=== PATIENT | male | born 1955 | race Caucasian/White ===

== ENCOUNTER → 2020-02-27 | Outpatient (CLI) | payer OTHER ==
[2020-02-27 09:20] LABS: ALBUMIN 4.3 GM/DL (3.2-4.5); BILIRUBIN,TOTAL 0.3 MG/DL (0.1-1.0); CALCIUM 9.6 MG/DL (8.5-10.1); CREATININE SERUM 2.13 MG/DL (0.60-1.30); POTASSIUM 4.7 MMOL/L (3.6-5.0); TOTAL PROTEIN 6.7 GM/DL (6.4-8.2)
== END ==
LOC: LAB FS 08:12
PROVIDERS: ATTEND Family Medicine
DX: I10 Essential (primary) hypertension (principal); E11.9 Type 2 diabetes mellitus without complications
CPT/HCPCS: 36415; 80053; 80061; 83036

== ENCOUNTER 2022-05-03 19:04 | Emergency (ER) | payer MEDICARE ==
[~2022-05-03] VITALS: Ht 177.8 cm; Wt 135.3 kg
--- NOTE | 2022-05-03 19:16 | ED General ---
General Chief Complaint: Head/Cervical Problems Stated Complaint: HEADACHE, ELEVATED BP History of Present Illness Date Seen by Provider: May 03, 2022 Time Seen by Provider: 19:16 Initial Comments 66-year-old male with PMH of DM2/HLD/HTN, is here with complaints of headache for the past 3 days and running out of his blood pressure medication. Patient has not taken his blood pressure medication for the last 3 months because he ran out, and felt he did not need it any longer so he did not see his PCP for a refill. Denies chest pain, palpitations, fever, shortness of breath, cough, abdominal pain, dizziness, blurry vision, hearing issues. Allergies and Home Medications Allergies Coded Allergies: No Allergy Information Available (Unverified , 07/11/15) UNABLE TO OBTAIN Patient Home Medication List Home Medication List Reviewed: Yes Review of Systems Review of Systems Constitutional: no symptoms reported EENTM: no symptoms reported Respiratory: no symptoms reported Cardiovascular: no symptoms reported Gastrointestinal: no symptoms reported Musculoskeletal: no symptoms reported Skin: no symptoms reported Psychiatric/Neurological: Headache Hematologic/Lymphatic: No Symptoms Reported Immunological/Allergic: no symptoms reported Past Gvdowjb-Ultlsp-Pqeprj Hx Patient Social History Tobacco Use?: Yes Smokeless Tobacco Frequency: Current Everyday User Use of E-Cig and/or Vaping dev: No Substance use?: No Alcohol Use?: No Pt feels they are or have been: No Immunizations Up To Date Influenza Vaccine Up-to-Date: Yes; Up-to-Date Physical Exam Vital Signs Vital Signs - First Documented 05/03/22 19:08 Temp 36.5 Pulse 84 Resp 18 B/P (MAP) 183/96 (125) Pulse Ox 96 O2 Delivery Room Air Capillary Refill : Height, Weight, BMI Height: '" Weight: lbs. oz. kg; BMI Method: General Appearance: No Apparent Distress, WD/WN, Obese HEENT: PERRL/EOMI, Moist Mucous Membranes Neck: Full Range of Motion, Normal Inspection, Non Tender, Supple Respiratory: Chest Non Tender, Lungs Clear, Normal Breath Sounds Cardiovascular: Regular Rate, Rhythm Gastrointestinal: Non Tender, Soft Back: Normal Inspection Extremity: Non Tender, No Calf Tenderness Neurologic/Psychiatric: Alert, Oriented x3, No Motor/Sensory Deficits, Normal Mood/Affect, corrugator II-XII Norm as Tested Skin: Normal Color Lymphatic: No Adenopathy Progress/Results/Core Measures Suspected Sepsis SIRS Temperature: Pulse: Respiratory Rate: Laboratory Tests 05/03/22 19:50: White Blood Count 7.8 Blood Pressure / Mean: Laboratory Tests 05/03/22 19:50: Creatinine 2.26H, INR Comment 0.9, Platelet Count 198, Total Bilirubin 0.2 Results/Orders Lab Results Laboratory Tests Test 05/03/22 19:50 05/03/22 20:13 Range/Units White Blood Count 7.8 4.3-11.0 10^3/uL Red Blood Count 5.25 4.30-5.52 10^6/uL Hemoglobin 15.6 13.3-17.7 g/dL Hematocrit 44 40-54 % Mean Corpuscular Volume 83 80-99 fL Mean Corpuscular Hemoglobin 30 25-34 pg Mean Corpuscular Hemoglobin Concent 36 32-36 g/dL Red Cell Distribution Width 13.3 10.0-14.5 % Platelet Count 198 130-400 10^3/uL Mean Platelet Volume 9.2 9.0-12.2 fL Immature Granulocyte % (Auto) 1 % Neutrophils (%) (Auto) 59 42-75 % Lymphocytes (%) (Auto) 28 12-44 % Monocytes (%) (Auto) 8 0-12 % Eosinophils (%) (Auto) 3 0-10 % Basophils (%) (Auto) 1 0-10 % Neutrophils # (Auto) 4.6 1.8-7.8 10^3/uL Lymphocytes # (Auto) 2.2 1.0-4.0 10^3/uL Monocytes # (Auto) 0.6 0.0-1.0 10^3/uL Eosinophils # (Auto) 0.3 0.0-0.3 10^3/uL Basophils # (Auto) 0.1 0.0-0.1 10^3/uL Immature Granulocyte # (Auto) 0.1 0.0-0.1 10^3/uL Prothrombin Time 12.3 12.2-14.7 SEC INR Comment 0.9 0.8-1.4 Activated Partial Thromboplast Time 26 24-35 SEC Sodium Level 141 135-145 MMOL/L Potassium Level 4.6 3.6-5.0 MMOL/L Chloride Level 106 98-107 MMOL/L Carbon Dioxide Level 22 21-32 MMOL/L Anion Gap 13 5-14 MMOL/L Blood Urea Nitrogen 29 H 7-18 MG/DL Creatinine 2.26 H 0.60-1.30 MG/DL Estimat Glomerular Filtration Rate 31 BUN/Creatinine Ratio 13 Glucose Level 193 H 70-105 MG/DL Calcium Level 8.6 8.5-10.1 MG/DL Corrected Calcium 9.0 8.5-10.1 MG/DL Magnesium Level 1.8 1.6-2.4 MG/DL Total Bilirubin 0.2 0.1-1.0 MG/DL Aspartate Amino Transf (AST/SGOT) 23 5-34 U/L Alanine Aminotransferase (ALT/SGPT) 18 0-55 U/L Alkaline Phosphatase 71 40-136 U/L Troponin I < 0.30 <0.30 NG/ML Total Protein 5.7 L 6.4-8.2 GM/DL Albumin 3.5 3.2-4.5 GM/DL Serum Alcohol < 10 <10 MG/DL Urine Color YELLOW Urine Clarity CLEAR Urine pH 6.0 5-9 Urine Specific [place] 1.025 H 1.016-1.022 Urine Protein 3+ H NEGATIVE Urine Glucose (UA) 1+ H NEGATIVE Urine Ketones NEGATIVE NEGATIVE Urine Nitrite NEGATIVE NEGATIVE Urine Bilirubin NEGATIVE NEGATIVE Urine Urobilinogen 0.2 < = 1.0 MG/DL Urine Leukocyte Esterase NEGATIVE NEGATIVE Urine RBC (Auto) 1+ H NEGATIVE Urine RBC 0-2 /HPF Urine WBC 10-25 H /HPF Urine Squamous Epithelial Cells 0-2 /HPF Urine Crystals NONE /LPF Urine Bacteria FEW H /HPF Urine Casts PRESENT /LPF Urine Hyaline Casts 0-2 H /LPF Urine Mucus NEGATIVE /LPF Urine Culture Indicated YES Urine Opiates Screen NEGATIVE NEGATIVE Urine Oxycodone Screen NEGATIVE NEGATIVE Urine Methadone Screen NEGATIVE NEGATIVE Urine Propoxyphene Screen NEGATIVE NEGATIVE Urine Barbiturates Screen NEGATIVE NEGATIVE Ur Tricyclic Antidepressants Screen NEGATIVE NEGATIVE Urine Phencyclidine Screen NEGATIVE NEGATIVE Urine Amphetamines Screen NEGATIVE NEGATIVE Urine Methamphetamines Screen NEGATIVE NEGATIVE Urine Benzodiazepines Screen NEGATIVE NEGATIVE Urine Cocaine Screen NEGATIVE NEGATIVE Urine Cannabinoids Screen NEGATIVE NEGATIVE My Orders Orders - FARIBA MEDINA MD Alcohol (05/03/22 19:18) Cbc With Automated Diff (05/03/22 19:18) Comprehensive Metabolic Panel (05/03/22 19:18) Drug Screen Stat (Urine) (05/03/22 19:18) Magnesium (05/03/22 19:18) Protime With Inr (05/03/22 19:18) Partial Thromboplastin Time (05/03/22 19:18) Ua Culture If Indicated (05/03/22 19:18) Troponin I Fs (05/03/22 19:18) Ct Head Wo (05/03/22 19:18) Chest 1 View Ap/Pa Only (05/03/22 19:18) Ekg Tracing (05/03/22 19:18) Monitor-Rhythm Ecg Trace Only (05/03/22 19:18) Metoprolol Succinate (Xl) Tab (Toprol Xl (05/03/22 19:32) Lisinopril Tablet (Zestril Tablet) (05/03/22 19:32) Urine Culture (05/03/22 20:13) Hydralazine Injection (Apresoline Inject (05/03/22 21:15) Vital Signs/I&O 05/03/22 05/03/22 05/03/22 05/03/22 19:08 19:15 20:00 21:07 Temp 36.5 Pulse 84 90 90 81 Resp 18 18 16 16 B/P (MAP) 183/96 (125) 175/93 187/86 184/92 Pulse Ox 96 96 95 96 O2 Delivery Room Air Room Air Room Air Room Air Capillary Refill : Progress Note : Progress Note 1. HYPERTENSIVE URGENCY WITH HEADACHE: - CT HEAD: no acute findings - CXR: unremarkable - CBC/ CMP - UA/ UDS: - Metoprolol Succinate XR 50mg & Lisinopril 10mg STAT in ER - Prescription refills given for BP medications Diagnostic Imaging Diagonstic Imaging: Xray, CT Plain Films/CT/US/NM/MRI: chest, head Comments [facility]. [place], [place] NAME: MAMADOU MILLIGAN [facility] REC#: [id number] PT STATUS: REG ER : 1955 PHYSICIAN: FARIBA MEDINA MD ADMIT DATE: 05/03/22/ER FS Draft Date of Exam:05/03/22 CT HEAD WO INDICATION: Headache/elevated BP. TECHNIQUE: Routine non contrast-enhanced axial images were obtained from the skull base to the vertex. Auto Exposure Controls were utilized during the CT exam to meet ALARA standards for radiation dose reduction. COMPARISON: None. FINDINGS: The ventricles and cortical sulci are diffusely prominent, compatible with age-related volume loss. There are confluent areas of abnormal, low attenuation in the periventricular white matter. This is consistent with small vessel ischemic changes; age-indeterminate. There is no prior study available for comparison. There is no midline shift or mass-effect. No acute intra-axial hemorrhage is seen. There are no abnormal areas of increased or decreased density to suggest acute hemorrhage or edema. No extra-axial masses or collections are present. The bony calvarium is intact. The visualized paranasal sinuses are unremarkable. The mastoid air cells are clear. IMPRESSION: 1. No acute intracranial abnormality. No CT evidence of mass, acute infarct or intracranial hemorrhage. 2. Small vessel ischemic changes in the periventricular and subcortical white matter; likely chronic. Dictated on workstation # [id number] Dict: 05/03/221945 Trans: 05/03/221947 PJSami [id number] Interpreted by: RANCHO REDDY MD Electronically signed by: [facility] [place] [place] NAME: MAMADOU MILLIGAN [facility] REC#: [id number] PT STATUS: REG ER : 1955 PHYSICIAN: FARIBA MEDINA MD ADMIT DATE: 05/03/22/ER FS Draft Date of Exam:05/03/22 CHEST 1 VIEW AP/PA ONLY INDICATION: Elevated BP. COMPARISON: None. FINDINGS: Single frontal view of the chest demonstrates normal heart size and pulmonary vascularity. The lungs are well aerated and clear. No large pleural effusion or pneumothorax is seen. The visualized osseous structures show no acute abnormalities. IMPRESSION: No acute cardiopulmonary process. Dictated on workstation # [id number] Dict: 05/03/221944 Trans: 05/03/221946 PJSami [id number] Interpreted by: RANCHO REDDY MD Electronically signed by: Departure Impression Primary Impression: Hypertensive urgency Additional Impression: Head ache Qualified Codes: R51.9 - Headache, unspecified Disposition: HOME, SELF-CARE Condition: Improved Departure-Patient Inst. Referrals: RONA VAZQUEZ MD (PCP/Family) Primary Care Physician Patient Instructions: High Blood Pressure Emergencies, Medicines for High Blood Pressure, Home Headache Remedies, High Blood Pressure in Adults Scripts Lisinopril/Hydrochlorothiazide (Lisinopril-Hctz 10-12.5 mg Tab) 10 Mg-12.5 Mg Tablet 1 EACH PO DAILY for 14 Days, #14 TAB Prov: FARIBA MEDINA MD 05/03/22 Metoprolol Succinate (Metoprolol Succinate) 100 Mg Tab.er.24h 100 MG PO DAILY for 14 Days, #14 TAB Prov: FARIBA MEDINA MD 05/03/22 FARIBA MEDINA MD May 03, 2022 19:16
[2022-05-03] MEDS ORDERED: meTOproloL SUCCINATE 50 MG (TOPROL XL) TAB PO STA (19:32)
[2022-05-03] MEDS ORDERED: lisINopril 10 MG (PRINIVIL) TABLET PO STA (19:32)
--- NOTE | 2022-05-03 19:48 | Diagnostic Imaging Report ---
INDICATION: Elevated BP. COMPARISON: None. FINDINGS: Single frontal view of the chest demonstrates normal heart size and pulmonary vascularity. The lungs are well aerated and clear. No large pleural effusion or pneumothorax is seen. The visualized osseous structures show no acute abnormalities. IMPRESSION: No acute cardiopulmonary process. Dictated by: Dictated on workstation # [id number]
--- NOTE | 2022-05-03 19:49 | Diagnostic Imaging Report ---
INDICATION: Headache/elevated BP. TECHNIQUE: Routine non contrast-enhanced axial images were obtained from the skull base to the vertex. Auto Exposure Controls were utilized during the CT exam to meet ALARA standards for radiation dose reduction. COMPARISON: None. FINDINGS: The ventricles and cortical sulci are diffusely prominent, compatible with age-related volume loss. There are confluent areas of abnormal, low attenuation in the periventricular white matter. This is consistent with small vessel ischemic changes; age-indeterminate. There is no prior study available for comparison. There is no midline shift or mass-effect. No acute intra-axial hemorrhage is seen. There are no abnormal areas of increased or decreased density to suggest acute hemorrhage or edema. No extra-axial masses or collections are present. The bony calvarium is intact. The visualized paranasal sinuses are unremarkable. The mastoid air cells are clear. IMPRESSION: 1. No acute intracranial abnormality. No CT evidence of mass, acute infarct or intracranial hemorrhage. 2. Small vessel ischemic changes in the periventricular and subcortical white matter; likely chronic. Dictated by: Dictated on workstation # [id number]
[2022-05-03 19:53] LABS: BASOPHILS # (AUTO) 0.1 10^3/uL (0.0-0.1); BASOPHILS % (AUTO) 1 % (0-10); EOSINOPHILS # (AUTO) 0.3 10^3/uL (0.0-0.3); EOSINOPHILS % (AUTO) 3 % (0-10); HEMATOCRIT 44 % (40-54); HEMOGLOBIN 15.6 g/dL (13.3-17.7); LYMPHOCYTES # (AUTO) 2.2 10^3/uL (1.0-4.0); LYMPHOCYTES % (AUTO) 28 % (12-44); MEAN CORPUSCULAR HEMOGLOBIN 30 pg (25-34); MEAN CORPUSCULAR HGB CONC 36 g/dL (32-36); MEAN CORPUSCULAR VOLUME 83 fL (80-99); MEAN PLATELET VOLUME 9.2 fL (9.0-12.2); MONOCYTES # (AUTO) 0.6 10^3/uL (0.0-1.0); MONOCYTES % (AUTO) 8 % (0-12); NEUTROPHILS # (AUTO) 4.6 10^3/uL (1.8-7.8); NEUTROPHILS % (AUTO) 59 % (42-75); PLATELET COUNT 198 10^3/uL (130-400); WHITE BLOOD COUNT 7.8 10^3/uL (4.3-11.0)
[2022-05-03 20:03] LABS: INR 0.9 (0.8-1.4); PROTHROMBIN TIME PATIENT 12.3 SEC (12.2-14.7)
[2022-05-03 20:11] LABS: BUN/CREATININE RATIO 13; CALCIUM 8.6 MG/DL (8.5-10.1); CARBON DIOXIDE 22 MMOL/L (21-32); CHLORIDE 106 MMOL/L (98-107); CREATININE SERUM 2.26 MG/DL (0.60-1.30); GFR ESTIMATED 31; GLUCOSE 193 MG/DL (70-105); POTASSIUM 4.6 MMOL/L (3.6-5.0); SODIUM 141 MMOL/L (135-145)
[2022-05-03 20:12] LABS: ALANINE AMINOTRANSFERASE 18 U/L (0-55); ALBUMIN 3.5 GM/DL (3.2-4.5); ALKALINE PHOSPHATASE 71 U/L (40-136); BILIRUBIN,TOTAL 0.2 MG/DL (0.1-1.0); MAGNESIUM 1.8 MG/DL (1.6-2.4); TOTAL PROTEIN 5.7 GM/DL (6.4-8.2)
[2022-05-03 20:18] LABS: BILIRUBIN,URINE NEGATIVE (NEGATIVE); CLARITY,URINE CLEAR; COLOR,URINE YELLOW; GLUCOSE, URINE (UA) 1+ (NEGATIVE); KETONES,URINE NEGATIVE (NEGATIVE); LEUKOCYTE ESTERASE ,URINE NEGATIVE (NEGATIVE); NITRITE,URINE NEGATIVE (NEGATIVE); PROTEIN,URINE 3+ (NEGATIVE)
[2022-05-03 20:23] LABS: BACTERIA,URINE FEW /HPF; HYALINE CASTS, URINE 0-2 /LPF; RBC,URINE 0-2 /HPF; SQUAMOUS EPITHELIAL CELL,UR 0-2 /HPF
[2022-05-03 20:31] LABS: AMPHETAMINE SCREEN, URINE NEGATIVE (NEGATIVE); BARBITURATE SCREEN URINE NEGATIVE (NEGATIVE); BENZODIAZEPINES SCREEN URINE NEGATIVE (NEGATIVE); CANNABINOID SCREEN, URINE NEGATIVE (NEGATIVE); COCAINE SCREEN URINE NEGATIVE (NEGATIVE); METHADONE STAT NEGATIVE (NEGATIVE); OPIATE SCREEN URINE NEGATIVE (NEGATIVE); OXYCODONE STAT NEGATIVE (NEGATIVE); PROPOXYPHENE STAT NEGATIVE (NEGATIVE); TRICYCLIC ANTIDEPRESSANTS SCRE NEGATIVE (NEGATIVE)
[2022-05-03] MEDS ORDERED: hydrALAZINE (APESOLINE) 20 MG/ML VIAL IV ONE (21:15)
[2022-05-03] MEDS ORDERED: LISI1TAB44 PO (21:17)
[2022-05-03] MEDS ORDERED: MTP100TCR PO (21:17)
[2022-05-03 21:32] VITALS: BP 183/93
== END 2022-05-03 21:30 | disposition home or self-care (01) ==
LOC: EDUNIT# 19:04 → ER FS 19:06
DX: I16.0 Hypertensive urgency (principal); E66.9 Obesity, unspecified; F17.200 Nicotine dependence, unspecified, uncomplicated
CPT/HCPCS: 36415; 70450; 71045; 80053; 80306; 81000; 83735; 84484; 85025; 85610; 85730; 87088; 93005; 99284; G0480; 80320